=== PATIENT | female | born 2005 ===

== ENCOUNTER 2024-12-03 21:38 | Outpatient (REF) | payer BC, SELFPAY ==
[2024-12-03 19:50] LABS: RBC Negative HPF (0-2); WBC 0-2 HPF (0-5)
== END 2024-12-03 21:39 | disposition home or self-care (01) ==
LOC: LBN 21:38
PROVIDERS: Visit Provider Physician Assistant Medical
DX: R39.9 Unspecified symptoms and signs involving the genitourinary system (principal)
CPT/HCPCS: 81015; 87086